=== PATIENT | female | born 1970 | race Caucasian/White ===

== ENCOUNTER 2020-07-05 18:27 | Inpatient (IN) | payer MEDICAID ==
[2020-07-05 21:44] VITALS: BP 106/75
[2020-07-06] MEDS: Multivitamin Tab PO SCH (08:41)
[2020-07-06] MEDS: Nicotine 14 mg/24 hr Tdm TD SCH (08:42)
--- NOTE | 2020-07-06 13:52 | History & Physical ---
ADMIT DATE: 07/05/2020 CHIEF COMPLAINT: Suicidal ideation. HISTORY OF PRESENT ILLNESS: We have a 49-year-old female with no significant past medical history, who presents to the ER with suicidal ideation. The patient did overdose on some sleeping pills. The patient denies any nausea, vomiting, abdominal pain, diarrhea, or rectal bleeding. PAST MEDICAL HISTORY: None. PAST SURGICAL HISTORY: None. MEDICATIONS: None. ALLERGIES: None. SOCIAL HISTORY: Tobacco, IV drugs, ETOH negative. PHYSICAL EXAMINATION: VITAL SIGNS: Temperature 98.6, pulse of 81, respirations 20, blood pressure is 104/63. HEENT: Normocephalic and atraumatic head exam. NECK: Supple. CARDIOVASCULAR: Regular rate and rhythm. LUNGS: Decreased breath sounds. ABDOMEN: Soft, nontender. EXTREMITIES: No edema, cyanosis or clubbing. NEUROLOGIC: Cranial nerves 2-12 are intact. ASSESSMENT AND PLAN: 1. Suicidal ideation. 2. Anxiety. The patient will get routine labs screened for COVID. [facility]# [id number]
--- NOTE | 2020-07-06 16:09 | Psychiatric Evaluation ---
DATE OF SERVICE: 07/06/2020 HISTORY OF PRESENT ILLNESS: A 49-year-old female apparently overdosed on medley of medications including cough syrup and she also states rubbing alcohol, sleep medications. The patient noting that she was incredibly overwhelmed alluding to financial stress, also problems with sleep, noting that she "overreacted" and "did something stupid" pleading with me to discharge her. The patient noting that she has been more depressed as of late, unclear timeframe, preoccupied with her discharge, right now very anxious, stating that she is feeling a lot of tension and anxiety. The patient well oriented on exam, times, name, place, situation, month, year. The patient apparently was feeling hopeless, helpless, despairing, did not know what to do, and therefore overdosed on medications. She notes at that time, it was in fact a valiant suicide effort. The patient alludes to some tension with the family, "power struggle." PAST PSYCHIATRIC HISTORY: Psychiatric admissions in the past alluding to a suicide attempt by overdose, "years ago." FAMILY HISTORY: "I don't know." SOCIAL HISTORY: The patient was born in [place], now living in [place] by herself. She has 2 kids, aged 27 and 19, they are involved, her mom is involved as well. 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 She denies any drugs. Erratic use of alcohol. She states that she drinks "a lot, a lot, a lot of coffee," "too much." MEDICATIONS: Noted. MENTAL STATUS EXAMINATION: Stated age. Fair eye contact. Speech within normal limits, ruminative, wants to leave. AO x 4. Mood "okay." Affect constricted. Thought processes were linear status post Valium. Suicide effort. No HI. No overt psychotic symptoms. Insight questionable. DIAGNOSES: Major depression, recurrent, severe. No overt psychotic symptoms. MEDICAL: Please see full H and P. The patient also with a diagnosis of anxiety, unspecified. ESTIMATED LENGTH OF STAY: 3-5 days. ASSESSMENT: The patient requiring hospitalization, Valium, suicide effort, still anxious, depressed, ongoing stressors, concerns for safety. TREATMENT PLAN: Includes group as well as milieu therapy. CONDITIONS FOR DISCHARGE: Improved mood, improved affect, better control of mood symptoms and anxiety, cessation of SI. [facility]# [id number]
[2020-07-07] MEDS: Multivitamin Tab PO SCH (09:13)
[2020-07-07] MEDS: Nicotine 14 mg/24 hr Tdm TD SCH (09:13)
--- NOTE | 2020-07-07 14:40 | Progress Notes ---
DATE: 07/07/2020 Covering for James Feliz M.D. SUBJECTIVE: The patient was interviewed. Case was discussed with staff. Chart and records were reviewed. The patient continues to be depressed, withdrawn, not participating much, stays in her room most of the day. The patient was visited at bedside. She has poor eye contact. Her speech is soft and mumbled. Her mood she reports as depressed. However, the patient is also very motivated to go home, stating "I am fine, I just want to go home." We attempted to discuss the case including the suicide attempt and reason for hospitalization as well as plans to manage the depression upon returning home; however, the patient was not willing to engage in any of this. The patient reports no side effects to medications. MENTAL STATUS EXAMINATION: The patient is unkempt female with poor eye contact. Speech is soft and mumbled. Mood and affect appear to be depressed and constricted. Thought process appears to be concrete. Unable to assess for suicidal or homicidal thoughts as the patient is not willing to disclose. Her insight, judgment and impulse control appear to be quite poor. She is alert and oriented to person and place. ASSESSMENT AND PLAN: We will have to transition the patient on to a 14-day hold given the severity of her condition. We will also encourage the patient to verbalize her needs and participate in group and milieu therapy and also continue medications as prescribed. JOB# [id number]
[2020-07-08] MEDS: Nicotine 14 mg/24 hr Tdm TD SCH (08:37)
[2020-07-08] MEDS: Multivitamin Tab PO SCH (08:38)
[2020-07-08] MEDS ORDERED: Maalox 30 mL Cup PO PRN (19:40)
[2020-07-08] MEDS ORDERED: Magnesium Hydroxide (MOM) 30 mL UDC PO PRN (19:42)
[2020-07-09 06:42] LABS: A1C 5.3 % (4.8-5.6)
[2020-07-09] MEDS: Multivitamin Tab PO SCH (08:44)
[2020-07-09] MEDS: Nicotine 14 mg/24 hr Tdm TD SCH (08:44)
--- NOTE | 2020-07-10 06:24 | Psych Progress Note ---
Psych Progress Note - Intro Date of Progress Note: 07/08/20 - Assessment Assessment: patient is withdrawn, anxious, depressed in her room. she appears nervous during interview "I'm fine I'm fine." She has absolutely no eye contact. per staff patient will not come out of room and reamins paranoid in bed. not cooperative and guarded otherwise. - Vitals, I&O Vitals: Vital Signs - 24 hr 07/09/20 07/09/20 07/09/20 15:18 20:00 20:28 Temp 99.3 F 97.4 F HR 98 101 RR 20 20 20 BP 111/76 114/71 O2 Sat % 97 97 07/10/20 05:51 Temp 97.9 F HR 66 RR 18 BP 90/53 O2 Sat % 97 - Objective Psych General Appearance: Report: No eye-contact Psych Behavior: Report: Uncooperative Psych Mood: Report: Anxious, Depressed Psych Affect: Report: Anxious, Constricted Psych Insight: Report: Impaired Psych Judgement: Report: Impaired - Plan Plan: cont meds - Review of Relevant Data Review of Relevant Data: I have reviewed the following items and time kady (where applicable) has been applied. - Medications Current Medications: Current Medications Acetaminophen (Tylenol) 650 mg PO Q4H PRN PRN Reason: Pain (Mild 1-3) Stop: 09/03/20 21:24 Al Hydrox/Mg Hydrox/Simethicone (Maalox) 30 ml PO Q4HR PRN PRN Reason: Upset Stomach / Indigestion Stop: 09/06/20 19:39 Last Admin: 07/08/20 20:29 Dose: 30 ml Docusate Sodium (Colace) 100 mg PO DAILY PAO Stop: 09/07/20 08:59 Last Admin: 07/09/20 08:44 Dose: 100 mg Lorazepam (Ativan) 0.5 mg PO Q4HR PRN; Protocol PRN Reason: Anxiety Stop: 08/04/20 21:24 Magnesium Hydroxide (Milk Of Magnesia) 30 ml PO HS PRN PRN Reason: Constipation Stop: 09/06/20 19:41 Last Admin: 07/09/20 09:10 Dose: 30 ml Mirtazapine (Remeron) 15 mg PO HS PAO; Protocol Stop: 09/04/20 20:59 Last Admin: 07/09/20 20:39 Dose: 15 mg Multivitamins/Vitamin C (Theragran) 1 tab PO DAILY PAO Stop: 09/04/20 08:59 Last Admin: 07/09/20 08:44 Dose: 1 tab Nicotine (Nicotine Transdermal System) 14 mg TD DAILY PAO Stop: 09/04/20 08:59 Last Admin: 07/09/20 08:44 Dose: 14 mg Temazepam (Restoril) 30 mg PO HS PRN; Protocol PRN Reason: Insomnia Stop: 09/03/20 22:00 Last Admin: 07/05/20 22:30 Dose: 30 mg
--- NOTE | 2020-07-10 06:25 | Psych Progress Note ---
Psych Progress Note - Intro Date of Progress Note: 07/09/20 - Assessment Assessment: patient is withdrawn, anxious, depressed in her room. she appears nervous during interview "I just want to go." She has absolutely no eye contact. per staff patient will not come out of room and reamins paranoid in bed. not cooperative and guarded otherwise. unkempt needs staff prompting. - Vitals, I&O Vitals: Vital Signs - 24 hr 07/09/20 07/09/20 07/09/20 15:18 20:00 20:28 Temp 99.3 F 97.4 F HR 98 101 RR 20 20 20 BP 111/76 114/71 O2 Sat % 97 97 07/10/20 05:51 Temp 97.9 F HR 66 RR 18 BP 90/53 O2 Sat % 97 - Objective Psych General Appearance: Report: No eye-contact Psych Behavior: Report: Uncooperative Psych Mood: Report: Anxious, Depressed Psych Affect: Report: Anxious, Constricted Psych Insight: Report: Impaired Psych Judgement: Report: Impaired - Plan Plan: cont meds - Review of Relevant Data Review of Relevant Data: I have reviewed the following items and time kady (where applicable) has been applied. - Medications Current Medications: Current Medications Acetaminophen (Tylenol) 650 mg PO Q4H PRN PRN Reason: Pain (Mild 1-3) Stop: 09/03/20 21:24 Al Hydrox/Mg Hydrox/Simethicone (Maalox) 30 ml PO Q4HR PRN PRN Reason: Upset Stomach / Indigestion Stop: 09/06/20 19:39 Last Admin: 07/08/20 20:29 Dose: 30 ml Docusate Sodium (Colace) 100 mg PO DAILY PAO Stop: 09/07/20 08:59 Last Admin: 07/09/20 08:44 Dose: 100 mg Lorazepam (Ativan) 0.5 mg PO Q4HR PRN; Protocol PRN Reason: Anxiety Stop: 08/04/20 21:24 Magnesium Hydroxide (Milk Of Magnesia) 30 ml PO HS PRN PRN Reason: Constipation Stop: 09/06/20 19:41 Last Admin: 07/09/20 09:10 Dose: 30 ml Mirtazapine (Remeron) 15 mg PO HS PAO; Protocol Stop: 09/04/20 20:59 Last Admin: 07/09/20 20:39 Dose: 15 mg Multivitamins/Vitamin C (Theragran) 1 tab PO DAILY PAO Stop: 09/04/20 08:59 Last Admin: 07/09/20 08:44 Dose: 1 tab Nicotine (Nicotine Transdermal System) 14 mg TD DAILY PAO Stop: 09/04/20 08:59 Last Admin: 07/09/20 08:44 Dose: 14 mg Temazepam (Restoril) 30 mg PO HS PRN; Protocol PRN Reason: Insomnia Stop: 09/03/20 22:00 Last Admin: 07/05/20 22:30 Dose: 30 mg
[2020-07-10] MEDS: Multivitamin Tab PO SCH (09:01)
[2020-07-10] MEDS: Nicotine 14 mg/24 hr Tdm TD SCH (09:02)
[2020-07-10 10:33] LABS: CHOLESTEROL 221 mg/dL (<200); TRIGLYCERIDES 76 mg/dL (30-150)
[2020-07-10 10:34] LABS: LDL CHOLESTEROL 140 mg/dL (0-129)
--- NOTE | 2020-07-10 15:19 | Progress Notes ---
DATE: 07/10/2020 SUBJECTIVE: This is a 49-year-old female, currently in the hospital, presented due to suicidality; noted to be withdrawn, still depressed and feels that the hospital is really not the place for her, pleading with me to go home, lives in [place]. Fair sleep, eating well, hopeful, wants things to improve. Noting any suicidal thoughts are lessening, decreasing. The mom left a message for me to contact her back on Thursday. The patient did not consent for me to call the mom back. I asked her again today. The patient is not consenting for me to contact the mom. Due to HIPAA laws, we will need to respect the patient's privacy, not to contact the mom for now. ASSESSMENT: The patient is mostly isolative, withdrawn, still with some bouts of depression, but noted to be with any lessening of suicidality and suicidal symptoms. PLAN: We will continue inpatient monitoring. Continue dosing of the mirtazapine; will err on the side of caution, monitor for further 24 hours. JOB# [id number]
[2020-07-11] MEDS: Multivitamin Tab PO SCH (08:50)
[2020-07-11] MEDS: Nicotine 14 mg/24 hr Tdm TD SCH (08:50)
--- NOTE | 2020-07-12 00:38 | Progress Notes ---
DATE: 07/11/2020 SUBJECTIVE: A 49-year-old female, currently in the hospital, mostly withdrawn, keeps to self, seems to be showing some signs and symptoms of improvement, depression worsening, better ADLs, showering, eating on her own volition, still not comfortable with the milieu, mostly with the patients who are demented and elderly and she is 49, so this is likely not the ideal place for treatment. She would like to leave. Staff noting she still is depressed appearing, sometimes tearful, but some improvement noted, any thoughts of suicide lessening. Medications were reviewed. Labs were reviewed. Vitals were reviewed. PLAN: We will ____ side of caution, monitor for further 24 hours. Continue medications. JOB# [id number]
[2020-07-12] MEDS: Nicotine 14 mg/24 hr Tdm TD SCH (08:36)
[2020-07-12] MEDS: Multivitamin Tab PO SCH (08:36)
--- NOTE | 2020-07-12 14:56 | Discharge Summary ---
DATE OF DISCHARGE: 07/12/2020 HISTORY OF PRESENT ILLNESS: A 49-year-old female overdosed on medications, rubbing alcohol, was really depressed, feeling that she "overreacted," noting financial stressors, erratic sleep, poor appetite, well oriented. The patient alluding also the tensions at home "power struggles." PAST PSYCHIATRIC HISTORY: Psychiatric admissions in the past. FAMILY HISTORY: Noncontributory. SOCIAL HISTORY: Noted. MENTAL STATUS EXAMINATION: Please see full psych eval for details. DIAGNOSES: Major depression, recurrent, severe, no psychosis. MEDICAL: Please see full H and P. HOSPITAL COURSE: After initial assessment, the patient was started on medications, which were adjusted. Over the course of treatment, mood improved, affect improved. Remained pretty isolative, not wanting to go out of her room, but to be fair to her, the patient is 49 and most people on the unit are significantly older, 25-30 years or more older and lot of them have dementia or are grossly psychotic, the patient noting this and also felt uncomfortable about being in the unit. She did not allow me to call her mom. Over the course of treatment, mood improved, affect improved, getting along with staff, friendly, engaged, linear, motivated and hopeful and optimistic about the future. CONDITION UPON DISCHARGE: Improved, better ADLs, showering, linear, also engaged. No SI, no HI, no intent, no plan or overt psychotic symptoms, better insight, better impulse control. DISCHARGE DIAGNOSES: Major depression, recurrent, severe, no psychosis. MEDICAL: Please see full H and P. PROGNOSIS: The patient follows up with outpatient mental health services and remains compliant with treatment. Prognosis will improve, otherwise guarded. JOB# [id number]
== END 2020-07-12 14:57 | disposition home or self-care (01) | DRG 885 ==
LOC: GERO 18:27
PROVIDERS: ADMIT Psychiatry & Neurology Psychiatry; ATTEND Psychiatry & Neurology Psychiatry
DX: F33.2 Major depressive disorder, recurrent severe without psychotic features (principal); R45.851 Suicidal ideations; E44.1 Mild protein-calorie malnutrition; Z68.1 Body mass index [BMI] 19.9 or less, adult; F41.9 Anxiety disorder, unspecified
CPT/HCPCS: 36415-UA; 80061-TC; 83036-90; U0003-CS